=== PATIENT | female | born 1935 | race Hispanic/Latino ===

== ENCOUNTER → 2017-10-13 | Outpatient (CLI) | payer OTHER, MEDICARE ==
[~2017-10-13] MED LIST: AMOX1TAB15 PO; DIAZ5TAB4 PO; GABA-531 PO; IBUP-2070 PO; MECL-111 PO; PANT40TA25 PO; RIVA15TA PO; RIVA20TA PO; SIME180C46 PO; SIMV40TA5 PO; SIMV40TA59 PO; TRAM50TA4 PO; TYL3B PO
== END | disposition home or self-care (01) ==
LOC: SHCH 15:58
PROVIDERS: ATTEND Internal Medicine Cardiovascular Disease
DX: R60.9 Edema, unspecified (principal)
CPT/HCPCS: 93306

== ENCOUNTER 2017-10-16 15:16 | Emergency (ER) | payer OTHER, MEDICARE ==
[2017-10-16 15:53] LABS: BASOPHILS % (AUTO) 0.3 % (0.0-5.0); EOSINOPHILS % (AUTO) 3.1 % (0.0-8.0); HEMATOCRIT 36.4 % (36-48); LYMPHOCYTES % (AUTO) 24.5 % (21.0-51.0); MEAN CORPUSCULAR HEMOGLOBIN 33.7 pg (27.0-33.0); MEAN CORPUSCULAR HGB CONC 34.7 g/dL (32.0-36.0); MONOCYTES % (AUTO) 9.2 % (3.0-13.0); NEUTROPHILS % (AUTO) 62.9 % (40.0-77.0); NUCLEATED RED BLOOD CELLS 0.1 % (0.0-0.19); PLATELET COUNT (AUTO) 336 K/uL (130-400); RED BLOOD CELL COUNT(AUTO) 3.75 MIL/uL (4.00-5.50); RED CELL DISTRIBUTION WIDTH 14.5 % (11.0-15.5); WHITE BLOOD COUNT (AUTO) 7.5 K/uL (4.8-10.8)
[2017-10-16 15:54] LABS: APPEARANCE,URINE Clear (CLEAR); BILIRUBIN,URINE Negative (NEGATIVE); COLOR,URINE Yellow (YELLOW); GLUCOSE, URINE (UA) Negative (NEGATIVE); KETONES,URINE Negative (NEGATIVE); LEUKOCYTE ESTERASE ,URINE Small (NEGATIVE); NITRATE,URINE Negative (NEGATIVE); OCCULT BLOOD,URINE Negative (NEGATIVE); PROTEIN,URINE Trace (NEGATIVE)
[2017-10-16 16:01] LABS: BACTERIA,URINE Few /HPF (None Seen); RBC,URINE None Seen /HPF (0-1); WBC,URINE 0-1 /HPF (0-1)
[2017-10-16 16:02] LABS: MUCUS,URINE Many LPF (None Seen); SQUAMOUS EPITHELIAL CELL,UR 0-2 /HPF (0-2)
[2017-10-16 16:04] LABS: CREATININE 0.8 mg/dL (0.5-1.5); POTASSIUM 3.7 mmol/L (3.5-5.1)
[2017-10-16 16:09] LABS: ALBUMIN 3.2 g/dL (3.5-5.0); BILIRUBIN,TOTAL 0.3 mg/dL (0.2-1.0); TOTAL PROTEIN, SERUM 6.9 g/dL (6.0-8.3)
[2017-10-16 16:13] LABS: B-TYPE NATRIURETIC PEPTIDE 176 pg/mL (0-100)
[2017-10-16] MEDS ORDERED: ACETAMINOPHEN 325 MG TAB ONE (17:35)
== END 2017-10-16 17:57 | disposition home or self-care (01) ==
LOC: EDH 15:16
DX: M54.5 Low back pain (principal); J45.909 Unspecified asthma, uncomplicated; K21.9 Gastro-esophageal reflux disease without esophagitis; E78.5 Hyperlipidemia, unspecified; H40.9 Unspecified glaucoma; R60.0 Localized edema
CPT/HCPCS: 36415; 80053; 81001; 83880; 84484; 85025; 93005; 93970

== ENCOUNTER → 2017-10-29 | Outpatient (CLI) | payer OTHER, MEDICARE | END | disposition home or self-care (01) | LOC: SHCH 09:29 | PROVIDERS: ATTEND Internal Medicine Cardiovascular Disease | DX: I87.2 Venous insufficiency (chronic) (peripheral) (principal) | CPT/HCPCS: 93970 ==

== ENCOUNTER → 2018-03-19 | Outpatient (CLI) | payer OTHER, MEDICARE | END | disposition home or self-care (01) | LOC: RAH 10:59 | PROVIDERS: ATTEND Family Medicine | DX: M48.061 Spinal stenosis, lumbar region without neurogenic claudication (principal); M47.896 Other spondylosis, lumbar region; M85.88 Other specified disorders of bone density and structure, other site | CPT/HCPCS: 72131 ==

== ENCOUNTER 2018-05-24 02:07 | Emergency (ER) | payer OTHER, MEDICARE ==
[2018-05-24] MEDS ORDERED: LIDOCAINE 1%-EPI 1:100,000 20 ML VIAL IJ ONE (02:23)
[2018-05-24] MEDS ORDERED: MORPHINE SULFATE 4 MG/1ML SYG ONE (02:23)
[2018-05-24] MEDS ORDERED: CEFAZOLIN SODIUM 1 GM VIAL ONE (04:11)
[2018-05-24] MEDS ORDERED: SODIUM CHLORIDE 0.9% 50 ML IV ONE (04:12)
[2018-05-24] MEDS ORDERED: SILVER SULFADIAZINE CREAM 50 GM TP ONE (04:28)
== END 2018-05-24 05:12 | disposition home or self-care (01) ==
LOC: EDH 02:07
DX: S81.811A Laceration without foreign body, right lower leg, initial encounter (principal); J45.909 Unspecified asthma, uncomplicated; K21.9 Gastro-esophageal reflux disease without esophagitis; E78.5 Hyperlipidemia, unspecified; W23.0XXA Caught, crushed, jammed, or pinched between moving objects, initial encounter; Y93.89 Activity, other specified; Y92.89 Other specified places as the place of occurrence of the external cause; Y99.8 Other external cause status
CPT/HCPCS: 12032; 73590; 96365; 96372; 99284; J0690; J2270; J3490

== ENCOUNTER 2018-06-02 16:01 | Emergency (ER) | payer OTHER, MEDICARE ==
[~2018-06-02 16:01] MED LIST changes: -LIDOCAINE HCL 2% JELLY 5 ML TP ONE
== END 2018-06-02 17:13 | disposition left against medical advice (07) ==
LOC: EDH 16:01

== ENCOUNTER → 2018-06-02 | Outpatient (CLI) | payer OTHER, MEDICARE ==
[~2018-06-02] MED LIST changes: +LIDOCAINE HCL 2% JELLY 5 ML TP ONE
[2018-06-02 16:10] VITALS: BP 164/80
== END | disposition home or self-care (01) ==
LOC: WHH 13:51
PROVIDERS: ATTEND Family Medicine
DX: S81.801A Unspecified open wound, right lower leg, initial encounter (principal); J45.909 Unspecified asthma, uncomplicated; I25.10 Atherosclerotic heart disease of native coronary artery without angina pectoris; F41.9 Anxiety disorder, unspecified; I87.2 Venous insufficiency (chronic) (peripheral); E78.5 Hyperlipidemia, unspecified; K21.9 Gastro-esophageal reflux disease without esophagitis; Z86.718 Personal history of other venous thrombosis and embolism; Z86.73 Personal history of transient ischemic attack (TIA), and cerebral infarction without residual deficits; W23.0XXA Caught, crushed, jammed, or pinched between moving objects, initial encounter; Y93.89 Activity, other specified; Y92.89 Other specified places as the place of occurrence of the external cause; Y99.8 Other external cause status
CPT/HCPCS: 11042; 11045; 87070; 87077 ×2; 87186 ×2; A6248; G0463

== ENCOUNTER → 2019-02-08 | Outpatient (CLI) | payer OTHER, MEDICARE | END | disposition home or self-care (01) | LOC: SHCH 15:19 | PROVIDERS: ATTEND Internal Medicine Cardiovascular Disease | DX: I50.30 Unspecified diastolic (congestive) heart failure (principal); R07.9 Chest pain, unspecified; R06.09 Other forms of dyspnea; I87.2 Venous insufficiency (chronic) (peripheral) | CPT/HCPCS: 93306 ==

== ENCOUNTER → 2019-02-09 | Outpatient (CLI) | payer OTHER, MEDICARE | END | disposition home or self-care (01) | LOC: SHCH 09:42 | PROVIDERS: ATTEND Internal Medicine Cardiovascular Disease | DX: I87.2 Venous insufficiency (chronic) (peripheral) (principal) | CPT/HCPCS: 93970 ==

== ENCOUNTER → 2020-01-21 | Outpatient (CLI) | payer OTHER, MEDICARE ==
[~2020-01-21] MED LIST changes: -MECL-111 PO; +MECL-160 PO; -PANT40TA25 PO; +PANT40TA55 PO; +REGADENOSON 0.4 MG/5 ML PF SYG IVP SCH; +SIMV-46 PO; -SIMV40TA5 PO
== END | disposition home or self-care (01) ==
LOC: SHCH 08:22
PROVIDERS: ATTEND Internal Medicine Cardiovascular Disease
DX: R07.9 Chest pain, unspecified (principal); R06.09 Other forms of dyspnea
CPT/HCPCS: 78452; 93017; A9500 ×2; J2785; 96374

== ENCOUNTER → 2020-12-02 | Outpatient (CLI) | payer OTHER, MEDICARE ==
[~2020-12-02] MED LIST changes: -REGADENOSON 0.4 MG/5 ML PF SYG IVP SCH; -SIME180C46 PO; +SIME180C70 PO
== END | disposition home or self-care (01) ==
LOC: SHCH 10:39
PROVIDERS: ATTEND Internal Medicine Cardiovascular Disease
DX: I51.7 Cardiomegaly (principal); R06.02 Shortness of breath
CPT/HCPCS: 93306

== ENCOUNTER → 2020-12-26 | Outpatient (CLI) | payer OTHER, MEDICARE | END | disposition home or self-care (01) | LOC: SHCH 09:48 | PROVIDERS: ATTEND Internal Medicine Cardiovascular Disease | DX: I73.9 Peripheral vascular disease, unspecified (principal); I87.2 Venous insufficiency (chronic) (peripheral) | CPT/HCPCS: 93925; 93970 ==

== ENCOUNTER → 2023-02-17 | Outpatient (CLI) | payer OTHER, MEDICARE ==
[~2023-02-17] MED LIST changes: -AMOX1TAB15 PO; -DIAZ5TAB4 PO; +DULO30CA52 PO; +FURO40TA5 PO; -GABA-531 PO; +HYDR200T75 PO; +LEVE500T19 PO; +LEVO50CA4 PO; -MECL-160 PO; -PANT40TA55 PO; +PREG100C56 PO; -RIVA15TA PO; -RIVA20TA PO; -SIME180C70 PO; -SIMV-46 PO; -SIMV40TA59 PO; -TRAM50TA4 PO; -TYL3B PO
== END | disposition home or self-care (01) ==
LOC: SHCH 13:36
PROVIDERS: ATTEND Internal Medicine Cardiovascular Disease
DX: I87.2 Venous insufficiency (chronic) (peripheral) (principal); I87.1 Compression of vein
CPT/HCPCS: 93970